=== PATIENT | female | born 1950 | race African-American/Black ===

== ENCOUNTER 2018-09-28 17:51 | Emergency (ER) | payer OTHER, SELFPAY ==
--- NOTE | 2018-09-28 19:14 | RAD REPORT ---
EXAM DESCRIPTION: RAD - Lumbar Spine 3 Views - 09/28/2018 7:05 pm CLINICAL HISTORY: Back pain FINDINGS: Mild anterior subluxation L4 on L5. Osteoporosis. No fracture. Mild spondylosis
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
== END 2018-09-28 20:10 | disposition home or self-care (01) ==
LOC: ER 17:51
DX: S16.1XXA Strain of muscle, fascia and tendon at neck level, initial encounter (principal); S39.012A Strain of muscle, fascia and tendon of lower back, initial encounter; V49.9XXA Car occupant (driver) (passenger) injured in unspecified traffic accident, initial encounter; Z88.5 Allergy status to narcotic agent
CPT/HCPCS: 70450; 72100; 72125; 99284